=== PATIENT | male | born 1980 | race Two or more races ===

== ENCOUNTER 2023-12-18 06:27 | Day surgery (SDC) | payer OTHER ==
[2023-12-16 12:15] LABS: Urine Bacteria None Seen /hpf (None Seen)
[2023-12-16 12:23] LABS: Basophils # (auto) 0 10 ^3/uL (0-0.2); Basophils % (auto) 0.4 % (0.0-2.0); Eosinophils # (auto) 0.1 10 ^3/uL (0-0.8); Eosinophils % (auto) 2.6 % (0.0-7.0); Hematocrit 40.5 % (41.0-53.0); Hemoglobin 13.9 g/dL (13.5-17.5); Lymphocytes # (auto) 1.1 10 ^3/uL (0.4-5.4); Lymphocytes % (auto) 23.7 % (10.0-50.0); Mean Corpuscular Hemoglobin 31.7 pg (28.0-32.0); Mean Corpuscular Hgb Conc. 34.3 g/dL (32.0-36.0); Mean Corpuscular Volume 92.4 fL (80.0-100.0); Monocytes # (auto) 0.3 10 ^3/uL (0-1.3); Monocytes % (auto) 6.5 % (0.0-12.0); Neutrophils # (auto) 3.2 10 ^3/uL (1.6-8.6); Neutrophils % (auto) 66.8 % (37.0-80.0); Platelet Count (auto) 223 10^3/uL (140-450); Red Blood Cells 4.39 10^6/uL (4.5-5.90); Red Cell Distribution Width 12.8 % (11.8-14.3); White Blood Cell 4.8 10^3/uL (4.4-10.8)
[2023-12-16 12:28] LABS: Urine Blood Negative /uL (Negative); Urine Clarity Clear (Clear); Urine Color Colorless (Yellow); Urine Protein, UAD Negative (Negative); Urine Specific Gravity 1.008 (1.001-1.035); Urine Urobilinogen Normal (Negative); Urine WBC 1 /hpf (0 - 3); Urine pH 7.5 (5.0-9.0)
[2023-12-16 12:40] LABS: Alanine Aminotransferase 12 U/L (7-40); Albumin 4.4 g/dL (3.2-4.8); Alkaline Phosphatase 57 U/L (46-116); Anion Gap 4 (5-15); Aspartate Aminotransferase 13 U/L (13-40); BUN/Creatinine Ratio 7.9 (10.0-20.0); Blood Urea Nitrogen 10 mg/dL (9-23); Calcium 9.3 mg/dL (8.7-10.4); Carbon Dioxide 28 mmol/L (20-30); Chloride 109 mmol/L (98-107); Glucose 96 mg/dL (74-106); Potassium 4.5 mmol/L (3.5-5.1); Sodium 141 mmol/L (136-145)
[2023-12-16 12:41] LABS: Bilirubin, Total 0.8 mg/dL (0.2-1.0); Total Protein 6.7 g/dL (5.7-8.2)
[2023-12-16 12:42] LABS: INR 1.06 (0.9-1.15); Partial Thromboplastin Time 24.5 SEC (24.5-34.5); Prothrombin Time 11.2 sec (9.3-11.8)
[~2023-12-18] VITALS: Ht 182.9 cm; Wt 77.1 kg
[2023-12-18] MEDS ORDERED: EPINEPHrine HCL 1 MG/1 ML AMP ONE (07:09)
[2023-12-18] MEDS: BUPIVACAINE HCL 50 ML ONE (07:30)
[2023-12-18] MEDS: CLINDAMYCIN 600MG IV 50 ML IV ONE (07:30)
[2023-12-18] MEDS: CLINDAMYCIN 300MG IV 50 ML IV ONE (07:30)
[2023-12-18] MEDS ORDERED: MIDAZOLAM HCL 2MG/2ML 2ml VIAL (1mg/ml) ONE (07:34)
[2023-12-18] MEDS ORDERED: fentaNYL CITRATE 100 MCG/2 ML VL ONE (07:34)
[2023-12-18] MEDS ORDERED: LIDOCAINE 2% (LOCAL ANESTH.) PF 5ml SDV ONE (07:36)
[2023-12-18] MEDS ORDERED: ONDANSETRON HCL 4 MG/2 ML VIAL ONE (07:36)
[2023-12-18] MEDS ORDERED: PROPOFOL 10 MG/ML 20 ML IV ONE (07:37)
[2023-12-18] MEDS ORDERED: HYDROmorphone HCL 2 MG/ML VL/or syr ONE (07:48)
[2023-12-18 08:47] VITALS: PULSE 86; RESP 14; TEMP 97.8; O2SAT 95
[2023-12-18] MEDS ORDERED: ONDANSETRON HCL 4 MG/2 ML VIAL IV ONE ×2 (09:00→11:00)
[2023-12-18] MEDS ORDERED: HYDROmorphone HCL 2 MG/ML VL/or syr IV PRN ×4 (09:00→11:00)
[2023-12-18] MEDS ORDERED: diphenhdrAMINE HCL 50 MG/1 ML VL IM ONE (09:15)
[2023-12-18] MEDS: diphenhdrAMINE HCL 50 MG/1 ML VL IV ONE (09:17)
[2023-12-18] MEDS ORDERED: diphenhdrAMINE HCL 50 MG/1 ML VL ONE (09:20)
[2023-12-18 09:35] VITALS: BP 140/92; PULSE 63; RESP 16; O2SAT 96
== END 2023-12-18 09:50 | disposition home or self-care (01) ==
LOC: SUR 06:27
PROVIDERS: ATTEND Orthopaedic Surgery Sports Medicine
DX: M22.42 Chondromalacia patellae, left knee (principal); M25.862 Other specified joint disorders, left knee; Z98.890 Other specified postprocedural states; Z88.0 Allergy status to penicillin; Z90.89 Acquired absence of other organs
CPT/HCPCS: 29873; 36415; 80053; 81001; 85025; 85610; 85730; J1170; J1200; J2001; J2250; J2405; J2704; J3010; J3490; J0171